=== PATIENT | female | born 1955 | race Caucasian/White ===

== ENCOUNTER 2020-03-31 17:48 | Emergency (ER) | payer MEDICARE, SELFPAY ==
[2020-03-31 18:10] VITALS: BP 160/84; PULSE 90; RESP 16; TEMP 36.9; O2SAT 95
--- NOTE | 2020-03-31 18:12 | ED.WOUNDLAC ---
HPI - Wound/Laceration General Chief Complaint: Wound/Laceration Stated Complaint: laceration on left leg Time Seen by Provider: 03/31/20 18:12 History of Present Illness HPI narrative: 64-year-old female patient is here with a laceration to the left russell. The patient states that she was walking and hit the edge of a blow through her jeans and noted a cut on the anterior russell. The bleeding was controlled at home. She is not on any blood thinners. She is up-to-date on her tetanus. Patient is not a diabetic and she denies any other injuries. Related Data Home Medications Medication Instructions Recorded Confirmed estradiol 1 mg PO DAILY 03/31/20 03/31/20 progesterone micronized 200 mg PO DAILY 03/31/20 03/31/20 Allergies Allergy/AdvReac Type Severity Reaction Status Date / Time Sulfa (Sulfonamide Allergy Hives Verified 03/31/20 18:11 Antibiotics) Review of Systems Review of Systems: All systems reviewed & are unremarkable except as noted in HPI and below PMFSH Past Medical History Medical History (Updated 03/31/20 @ 18:30 by Maureen Rios MD) No pertinent past medical history Surgical History Surgical History (Updated 03/31/20 @ 18:25 by Maureen Rios MD) No pertinent past surgical history Exam Narrative: Exam Narrative: alert and oriented female in no acute distress Stable vital signs No respiratory distress The left lower leg has a flap laceration in the mid anterior russell area with bleeding controlled. There is no injury to the tendon or the muscle underneath. The distal neurovascular status of the leg is intact. No other bruising or injuries are noted to the left lower extremity. The patient is able to bear weight without any problems. Neuropsych evaluation is normal Course Course Emergency Course: the laceration was cleaned thoroughly by the RN and is closed with Dermabond. The sutures through the flap would have to be damaging to the flap since it is very thin. Procedures Laceration Laceration 1: Date: 03/31/20 Time: 18:27 Site: lower extremity Size (cm): 2 Description: flap Depth: simple, single layer ====== Skin Level ====== Skin layer closed with: dermabond ====== Subcutaneous Layer ====== ====== Muscle Layer ====== ====== Tendon Layer ====== Discharge Plan Discharge Clinical Impression: Avulsion of skin Patient Disposition: Home, Self-Care Condition: Stable Instructions: Skin Avulsion (ED), Skin Adhesive Care (ED), Antibiotic Form Additional Instructions: Keep the wound dry and clean and avoid using any Band-Aid or ointment. Follow-up with your primary care physician in 3 days for wound check. Return to ER sooner if there is a problem Prescriptions: No Action estradiol 1 mg tablet 1 mg PO DAILY RF: 0 progesterone micronized 200 mg capsule 200 mg PO DAILY RF: 0 Follow-up/Referrals: Caryn,MD Mike [Primary Care Provider] - Time of Disposition: 18:29
[2020-03-31 18:37] VITALS: RESP 16
== END 2020-03-31 18:38 | disposition home or self-care (01) ==
PROVIDERS: Emergency Provider Emergency Medicine; PCP Internal Medicine
DX: S81.812A Laceration without foreign body, left lower leg, initial encounter (principal); W45.8XXA Other foreign body or object entering through skin, initial encounter
CPT/HCPCS: 12001; 99282